=== PATIENT | female | born 1960 | race American Indian/Alaskan Native ===

== ENCOUNTER 2017-09-03 16:40 | Emergency (ER) | payer OTHER ==
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
[2017-09-03] MEDS ORDERED: FLEXERIL PO ONE (20:07)
[2017-09-03] MEDS ORDERED: MOTRIN PO ONE (20:07)
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
[2017-09-03 22:51] VITALS: BP 124/67
== END 2017-09-03 22:51 | disposition home or self-care (01) ==
LOC: ED 16:40
DX: S16.1XXA Strain of muscle, fascia and tendon at neck level, initial encounter (principal); M54.5 Low back pain; M19.012 Primary osteoarthritis, left shoulder; F17.200 Nicotine dependence, unspecified, uncomplicated; E03.9 Hypothyroidism, unspecified; V89.2XXA Person injured in unspecified motor-vehicle accident, traffic, initial encounter; Y93.89 Activity, other specified; Y99.8 Other external cause status; Y92.410 Unspecified street and highway as the place of occurrence of the external cause
CPT/HCPCS: 72100; 99283